=== PATIENT | male | born 1940 | race Caucasian/White ===

== ENCOUNTER 2021-03-11 09:52 | Emergency (ER) | payer MEDICARE, BC ==
[~2021-03-11] VITALS: Ht 170.2 cm; Wt 82.7 kg
[~2021-03-11 09:52] MED LIST: ASPI81TA30 PO; ATOR20TA PO; CHOL2000 PO; CITA10TA9 PO; GLIP5TAB13 PO; LOSA1TAB36 PO; MIRT-88 PO; VIT1TABL83 PO
[2021-03-11 11:51] LABS: URINE AMPHETAMINE SCREEN NEGATIVE (Neg); URINE BARBITUATE SCREEN NEGATIVE (Neg); URINE BENZODIAZEPINES SCREEN NEGATIVE (Neg); URINE CANNABINOID SCREEN NEGATIVE (Neg); URINE COCAINE SCREEN NEGATIVE (Neg); URINE METHADONE SCREEN NEGATIVE (Neg); URINE OPIATE SCREEN NEGATIVE (Neg); URINE PHENCYCLIDINE SCREEN NEGATIVE (Neg)
[2021-03-11 11:55] LABS: CLARITY,URINE CLEAR (Clear); COLOR,URINE YELLOW (Yellow); GLUCOSE, URINE 100 mg/dl (Neg); KETONES,URINE 15 mg/dl (Neg); LEUKOCYTE ESTERASE ,URINE NEGATIVE (Neg); NITRITES, URINE NEGATIVE (Neg); OCCULT BLOOD,URINE NEGATIVE (Neg); PROTEIN,URINE NEGATIVE (Neg)
[2021-03-11 11:57] LABS: UA COLLECTION TYPE NON-SPECIFIED
[2021-03-11 12:01] LABS: BASOPHILS % (AUTO) 0.4 % (0-1); EOSINOPHILS % (AUTO) 0.1 % (0-6); HEMATOCRIT 46.9 % (42.0-52.0); HEMOGLOBIN 15.8 g/dl (14.0-17.9); LYMPHOCYTES # (AUTO) 1.1 X10'3 (1.1-4.8); LYMPHOCYTES % (AUTO) 15.8 % (21-51); MEAN CORPUSCULAR HEMOGLOBIN 29.8 PG (27.0-31.0); MEAN CORPUSCULAR HGB CONC 33.6 g/dL (33.0-36.5); MEAN CORPUSCULAR VOLUME 88.8 FL (78-98); MEAN PLATELET VOLUME 8.4 FL (7.4-10.4); MONOCYTES # (AUTO) 0.6 X10'3 (0-0.9); MONOCYTES % (AUTO) 8.2 % (2-12); NEUTROPHILS # (AUTO) 5.5 X10'3 (1.8-7.7); NEUTROPHILS % (AUTO) 75.5 % (42-75); PLATELET COUNT 157 X10'3 (140-440); RED BLOOD COUNT 5.29 X10'6 (4.70-6.10); WHITE BLOOD COUNT 7.2 X10'3 (4.5-11.0)
[2021-03-11 12:05] LABS: ALANINE AMINOTRANSFERASE 20 U/L (12-78); ALBUMIN 3.5 G/DL (3.4-5.0); ALBUMIN/GLOBULIN RATIO 1.1 (1.1-1.5); ALKALINE PHOSPHATASE 51 IU/L (46-116); ANION GAP 11 (8-16); ASPARTATE AMINO TRANSFERASE 18 U/L (10-37); BILIRUBIN,TOTAL 0.8 MG/DL (0.1-1.0); BLOOD UREA NITROGEN 12 MG/DL (7-18); BUN/CREATININE RATIO 14.5 (5.4-32.0); CALCIUM 8.4 MG/DL (8.5-10.1); CHLORIDE 106 MMOL/L (99-107); CREATININE 0.83 MG/DL (0.60-1.10); GLUCOSE 124 MG/DL (70-104); POTASSIUM 3.7 MMOL/L (3.5-5.1); SODIUM 143 MMOL/L (135-145); TOTAL CARBON DIOXIDE 25.7 MMOL/L (24-32); TOTAL PROTEIN 6.6 G/DL (6.4-8.2); eGFR 89 ML/MIN
[2021-03-11 12:15] LABS: ETHANOL < 0.010 GM/DL (0.0-0.010)
--- NOTE | 2021-03-11 15:14 | NUR ---
CHANGED INTO GREEN SCRUBS & BELONGINGS COLLECTED.
[2021-03-11] MEDS ORDERED: GLIP2.5T3 PO (18:48)
[2021-03-11] MEDS ORDERED: VALS40TA2 PO (18:50)
[2021-03-11] MEDS ORDERED: EFF37.5XRC PO (18:50)
[2021-03-11] MEDS ORDERED: venlafaxine XR 37.5mg cap (Q24H) PO SCH (19:00)
--- NOTE | 2021-03-11 19:00 | NUR ---
Patient provided with dinner tray
--- NOTE | 2021-03-11 20:00 | NUR ---
The patient moved to bed 24 in the ER overflow. He was very cooperative with the move. He reports feeling very depressed and having suicidal thoughts for at least one month with a plan to shoot himself with a gun. He denies psychotic symptoms. Attempted to reach [facility] cabinet worker to check if the patient's gun has been secured.
--- NOTE | 2021-03-11 20:38 | NUR ---
Attempted to contact the to check on status of the patient's weapon but there was no answer. Will continue to try and contact his .
[2021-03-11] MEDS ORDERED: atorvastatin 20mg tablet PO SCH (21:00)
--- NOTE | 2021-03-11 21:34 | NUR ---
The patient is resting comfortably on his bed
--- NOTE | 2021-03-11 22:45 | NUR ---
The patient appears to be sleeping
--- NOTE | 2021-03-12 01:09 | NUR ---
The patient appears to be sleeping
--- NOTE | 2021-03-12 02:51 | NUR ---
The patient appears to be sleeping
--- NOTE | 2021-03-12 05:06 | NUR ---
The patient appears to be sleeping
[2021-03-12] MEDS ORDERED: cholecalciferol (vitamin D3) 1,000 unit (25mcg) tablet PO SCH ×2 (08:00→12:00)
[2021-03-12] MEDS ORDERED: aspirin 81mg tablet.DR PO SCH ×3 (08:00→19:00)
[2021-03-12] MEDS ORDERED: venlafaxine XR 37.5mg cap (Q24H) PO SCH ×2 (08:00→19:00)
[2021-03-12] MEDS ORDERED: losartan 25mg tablet PO SCH ×2 (08:00→12:00)
[2021-03-12] MEDS ORDERED: glimepiride 1 MG tablet PO SCH ×2 (08:00→12:00)
[2021-03-12] MEDS ORDERED: loperamide 2mg capsule PO ONE (10:45)
--- NOTE | 2021-03-12 10:55 | NUR ---
PT STATES, IM HAVING PROBLEMS URINATING AND HAS NEVER HAD THIS PROBLEM BEFORE. NO BURNING ON URINATION OR PAIN. ALSO IS HAVING DIARRHEA. STATES, " I WAS AT [facility] THE OTHER DAY AND WAS EXPERIENCING DIARRHEA AND VOMITING, I THINK I PICKED SOMETHING UP AT [facility]".
[2021-03-12] MEDS ORDERED: tamsulosin 0.4mg capsule PO ONE (11:00)
[2021-03-12] MEDS ORDERED: atorvastatin 20mg tablet PO SCH (12:00)
--- NOTE | 2021-03-12 12:45 | NUR ---
PT UP TO BR, VOIDED LARGE AMT OF CLEAR YELLOW URINE. PT STATES, " THAT MEDICINE REALLY WORKED." PT WAS GIVEN FLOMAX.
--- NOTE | 2021-03-12 13:00 | NUR ---
WENT HOME TO HAVE LUNCH.
--- NOTE | 2021-03-12 15:41 | NUR ---
ENEDELIA KIRKLAND FROM [facility], REPORT GIVEN. THEY WILL ACCEPT PT PENDING COVID SWAB.
--- NOTE | 2021-03-12 17:17 | NUR ---
JOHANN CALLED FROM [facility] OFFICE. PT HAS BEEN ACCEPTED TO [facility]VI[facility]SLY CALLED [facility]. DR. WALTER IS ACCEPTING DOCTOR. TRANSPORT ARRANGED FOR TOMORROW MORNING 03-13-21 AT 0815.
--- NOTE | 2021-03-12 17:21 | NUR ---
[place] [phone]
--- NOTE | 2021-03-12 20:30 | NUR ---
received pt sitting in bed talking with his who was sitting at bedside. both given update that pt is accepted at [facility] and transport is set up (tentatively) for 0815 tomorrow morning 03/13. both and pt are agreeable to this plan. then left for the evening shortly after. pt seen pacing the hallways and denied any anxiety, simply stated "i'm just getting out some energy before bed." took nighttime medications without issue and is now lying in bed comfortably.
[2021-03-12] MEDS ORDERED: tamsulosin 0.4mg capsule PO SCH (21:00)
--- NOTE | 2021-03-12 21:19 | NUR ---
during bedside 1:1 assessment, pt denies SI/SH/HI/AVH. pt states he hasnt felt suicidal or self harming since "starting that new medication." pt reports that he has had many episodes of depression in his life and has never found a medication like this one that has helped so well. Pt reports quality sleep at night and is not drowsy during the daytime. reports high energy during the day "like i'm back to normal." denies any urinary retention issues since taking the flomax earlier today. reports good bowel movements. pt is looking forward to going to the facility in [place] tomorrow and is hopeful to go home soon after. has good hygiene, is dressed appropriately in clean green scrubs, denies pain, appears euthymic and is social with peers and staff. denies any anxiety.
--- NOTE | 2021-03-12 23:06 | NUR ---
pt appears to be sleeping peacefully on stomach. no s/s acute distress, respirations even and unlabored.
--- NOTE | 2021-03-13 02:21 | NUR ---
pt appears to be resting comfortably on left side. no s/s acute distress at this time. respirations even and unlabored
--- NOTE | 2021-03-13 05:25 | NUR ---
pt appears to be resting comfortably on stomach. no s/s acute distress at this time. respirations even and unlabored
[2021-03-13 05:59] VITALS: BP 158/80
--- NOTE | 2021-03-13 06:35 | NUR ---
pt sleeping in supine position ,no sign of distress noted ,rr regular and nonlabored will cont to monitor.
--- NOTE | 2021-03-13 07:15 | NUR ---
pt at bedside came up to nurses station and stated that pt is going to [place] but does not have clothes to wear ,informed that pt clothes is in the locker as told by last night rn ,as per when pt first came to er she took all the belonging home even the clothes,pt said she will go to her house and get her 's clothes.
--- NOTE | 2021-03-13 08:19 | NUR ---
at the bedside with belonging,pt sitting up in bed ,pt refused to eat breakfast,general assessment done ,pt denies any pain .Informed the pt and pt that the transportation will be here at 0815 as told by last night rn but it could be delay ,pt and pt aware.
--- NOTE | 2021-03-13 08:23 | NUR ---
recived call from [facility] spoke to aditya stated that pt transporation will be here within 20 mins.
== END 2021-03-13 09:07 ==
LOC: ER 09:52
DX: F32.9 Major depressive disorder, single episode, unspecified (principal); Z20.822 Contact with and (suspected) exposure to COVID-19; R45.851 Suicidal ideations; R44.0 Auditory hallucinations; R45.1 Restlessness and agitation; F41.9 Anxiety disorder, unspecified; E11.9 Type 2 diabetes mellitus without complications; Z79.82 Long term (current) use of aspirin; Z79.899 Other long term (current) drug therapy
CPT/HCPCS: 36415; 80053; 80305; 80320; 81003; 84443; 85025; 87635; 99285; C9803

== ENCOUNTER 2021-03-20 07:48 | Emergency (ER) | payer MEDICARE, BC ==
[~2021-03-20] VITALS: Ht 170.2 cm; Wt 90.0 kg
[~2021-03-20 07:48] MED LIST changes: -CITA10TA9 PO; +EFF37.5XRC PO; +GLIP2.5T3 PO; -GLIP5TAB13 PO; -LOSA1TAB36 PO; -MIRT-88 PO; +VALS40TA2 PO; -VIT1TABL83 PO
--- NOTE | 2021-03-20 07:59 | NUR ---
PT STATES, I DONT WANT TO LIVE ANYMORE. IM DONE.
[2021-03-20] MEDS ORDERED: normal saline 1000ML IV soln IVB ONE (08:30)
[2021-03-20 09:38] LABS: BASOPHILS % (AUTO) 0.4 % (0-1); EOSINOPHILS % (AUTO) 0.3 % (0-6); HEMATOCRIT 48.2 % (42.0-52.0); HEMOGLOBIN 16.1 g/dl (14.0-17.9); LYMPHOCYTES # (AUTO) 1.1 X10'3 (1.1-4.8); LYMPHOCYTES % (AUTO) 17.8 % (21-51); MEAN CORPUSCULAR HEMOGLOBIN 29.5 PG (27.0-31.0); MEAN CORPUSCULAR HGB CONC 33.4 g/dL (33.0-36.5); MEAN CORPUSCULAR VOLUME 88.6 FL (78-98); MEAN PLATELET VOLUME 8.1 FL (7.4-10.4); MONOCYTES # (AUTO) 0.5 X10'3 (0-0.9); MONOCYTES % (AUTO) 8.4 % (2-12); NEUTROPHILS # (AUTO) 4.6 X10'3 (1.8-7.7); NEUTROPHILS % (AUTO) 73.1 % (42-75); PLATELET COUNT 182 X10'3 (140-440); RED BLOOD COUNT 5.45 X10'6 (4.70-6.10); WHITE BLOOD COUNT 6.2 X10'3 (4.5-11.0)
[2021-03-20 09:50] LABS: ALANINE AMINOTRANSFERASE 18 U/L (12-78); ALBUMIN 3.5 G/DL (3.4-5.0); ALBUMIN/GLOBULIN RATIO 1.1 (1.1-1.5); ALKALINE PHOSPHATASE 53 IU/L (46-116); ANION GAP 8 (8-16); ASPARTATE AMINO TRANSFERASE 16 U/L (10-37); BILIRUBIN,TOTAL 0.7 MG/DL (0.1-1.0); BLOOD UREA NITROGEN 11 MG/DL (7-18); BUN/CREATININE RATIO 14.3 (5.4-32.0); CALCIUM 8.7 MG/DL (8.5-10.1); CHLORIDE 105 MMOL/L (99-107); CREATININE 0.77 MG/DL (0.60-1.10); GLUCOSE 118 MG/DL (70-104); POTASSIUM 4.1 MMOL/L (3.5-5.1); SODIUM 141 MMOL/L (135-145); TOTAL CARBON DIOXIDE 27.6 MMOL/L (24-32); TOTAL PROTEIN 6.7 G/DL (6.4-8.2); eGFR > 90 ML/MIN
[2021-03-20 09:54] LABS: ETHANOL < 0.010 GM/DL (0.0-0.010)
[2021-03-20 11:40] LABS: CLARITY,URINE SLIGHTLY CLOUDY (Clear); COLOR,URINE YELLOW (Yellow); GLUCOSE, URINE NEGATIVE (Neg); KETONES,URINE 15 mg/dl (Neg); LEUKOCYTE ESTERASE ,URINE NEGATIVE (Neg); NITRITES, URINE NEGATIVE (Neg); OCCULT BLOOD,URINE NEGATIVE (Neg); PH,URINE 7.5 (4.8-8.0); PROTEIN,URINE NEGATIVE (Neg)
[2021-03-20 11:41] LABS: UA COLLECTION TYPE NON-SPECIFIED
[2021-03-20 11:46] LABS: MUCUS STRANDS FEW /LPF (Neg); SQUAMOUS EPITHELIAL CELL,UR FEW /LPF (FEW); TRANSITIONAL EPI CELLS,URINE FEW /HPF
[2021-03-20 11:48] LABS: BACTERIA,URINE NONE SEEN /HPF (Neg); HYALINE CASTS 0-3 /LPF (NEGATIVE); RBC,URINE 0-2 /HPF (0-2); SPERM FEW /HPF (NEGATIVE); WBC,URINE 0-4 /HPF (0-4)
[2021-03-20 11:53] LABS: URINE AMPHETAMINE SCREEN NEGATIVE (Neg); URINE BARBITUATE SCREEN NEGATIVE (Neg); URINE BENZODIAZEPINES SCREEN NEGATIVE (Neg); URINE CANNABINOID SCREEN NEGATIVE (Neg); URINE COCAINE SCREEN NEGATIVE (Neg); URINE METHADONE SCREEN NEGATIVE (Neg); URINE OPIATE SCREEN NEGATIVE (Neg); URINE PHENCYCLIDINE SCREEN NEGATIVE (Neg)
--- NOTE | 2021-03-20 12:10 | NUR ---
PT BROUGHT TO OVERFLOW AND PLACED IN BED 22. PT ORIENTATING TO ENVIROMENT, FAMILY AT BEDSIDE.
--- NOTE | 2021-03-20 12:35 | NUR ---
PACKET FAXED TO [facility].
--- NOTE | 2021-03-20 19:57 | NUR ---
The patient is resting on his bed and currently visiting with his . He is pending placement on a 5150 hold for being a danger to himself. His PIV was discontinued. Currently he denies feeling anxious. He stated that earlier in the day he was having suicidal thoughts and explained, "I tried to get into the safe to get my gun because I can't take of my wfe anymore. I'm 80 and I don't have the strength and my can't take of the house"
[2021-03-20] MEDS ORDERED: atorvastatin 20mg tablet PO SCH (21:00)
--- NOTE | 2021-03-20 22:34 | NUR ---
The patient appears to be sleeping
--- NOTE | 2021-03-20 23:50 | NUR ---
The patient appears to be sleeping
--- NOTE | 2021-03-21 01:57 | NUR ---
The patient appears to be sleeping
--- NOTE | 2021-03-21 03:56 | NUR ---
The patient appears to be sleeping
--- NOTE | 2021-03-21 05:21 | NUR ---
The patient appears to be sleeping
[2021-03-21 06:07] VITALS: BP_DIAS 76
--- NOTE | 2021-03-21 06:30 | NUR ---
Pt is lying in bed, appears to be sleeping.
--- NOTE | 2021-03-21 07:50 | NUR ---
Pt is awake and waiting for breakfast. Pt denies depression or SI, pt reports that "they said I tried to get a gun." Pt wants to go home.
[2021-03-21 07:58] VITALS: BP_SYST 143
[2021-03-21] MEDS ORDERED: GLIPIZIDE 2.5 MG PO SCH (08:00)
[2021-03-21] MEDS ORDERED: losartan 25mg tablet PO SCH ×2 (08:00)
[2021-03-21] MEDS ORDERED: venlafaxine XR 37.5mg cap (Q24H) PO SCH (08:00)
[2021-03-21] MEDS ORDERED: cholecalciferol (vitamin D3) 1,000 unit (25mcg) tablet PO SCH (08:00)
[2021-03-21] MEDS ORDERED: aspirin 81mg tab.chew PO SCH (08:30)
--- NOTE | 2021-03-21 08:35 | NUR ---
[facility] is here to re-evaluate the patient.
--- NOTE | 2021-03-21 08:36 | NUR ---
Pt refused breakfast. Pt's is at bedside.
--- NOTE | 2021-03-21 10:03 | NUR ---
Pt discharged home with . Ambulated off the unit accompanied by and security.
== END 2021-03-21 10:03 | disposition home or self-care (01) ==
LOC: ER 07:49
DX: R45.851 Suicidal ideations (principal); R62.7 Adult failure to thrive; Z20.822 Contact with and (suspected) exposure to COVID-19; E78.00 Pure hypercholesterolemia, unspecified; E11.9 Type 2 diabetes mellitus without complications; Z79.82 Long term (current) use of aspirin; Z79.899 Other long term (current) drug therapy
CPT/HCPCS: 36415; 80053; 80305; 80320; 81001; 85025; 87635; 93005; 99285; C9803; J7030